=== PATIENT | female | born 1965 | race Caucasian/White ===

== ENCOUNTER 2018-07-05 14:25 | Day surgery (SDC) | payer MEDICAID ==
[~2018-07-05] VITALS: Ht 170.2 cm; Wt 105.5 kg
[~2018-07-05 14:25] MED LIST: ALBU18HF2 INH; ALEN70TA48 PO; ARIP2TAB37 PO; ATOR40TA PO; BISACODYL PO; CLOP75TA35 PO; EPIN0.3P3; FLUC100T PO; GABA300C PO; HYDR-4383 PO; HYDR25TA4 PO; KEN0.1O TP; LEVO100T PO; LOSA50TA3 PO; METH-603 PO; MYCOL15CR TP; OSC500T PO; OXYB5TAB11 PO; PANT40TA4 PO; POLY17PO10 PO; POTA10TA19 PO; TEMA30CA5 PO; TRAZ-219 PO; VENL150C2 PO
[2018-07-05 14:35] VITALS: BP 150/92
[2018-07-05] MEDS ORDERED: fentaNYL/PF 50MCG/1 ML 2ML syringe ONE (15:06)
[2018-07-05] MEDS ORDERED: LIDOcaine Viscous 15ml cup ONE (15:07)
[2018-07-05] MEDS ORDERED: MIDAZolam 5mg/5ml vial ONE ×2 (15:07→15:54)
[2018-07-05 16:08] VITALS: BP 141/108
[2018-07-05 16:18] VITALS: BP 115/54
[2018-07-05 16:28] VITALS: BP 160/77
[2018-07-05 16:38] VITALS: BP 147/97
== END 2018-07-05 16:55 | disposition home or self-care (01) ==
LOC: GI LAB 14:25
PROVIDERS: ATTEND Internal Medicine Gastroenterology
DX: K29.50 Unspecified chronic gastritis without bleeding (principal); K20.9 Esophagitis, unspecified; K31.89 Other diseases of stomach and duodenum; K22.8 Other specified diseases of esophagus; K25.9 Gastric ulcer, unspecified as acute or chronic, without hemorrhage or perforation; E66.01 Morbid (severe) obesity due to excess calories; I10 Essential (primary) hypertension; I25.10 Atherosclerotic heart disease of native coronary artery without angina pectoris; I71.4 Abdominal aortic aneurysm, without rupture; J44.9 Chronic obstructive pulmonary disease, unspecified; Z87.891 Personal history of nicotine dependence; Z95.5 Presence of coronary angioplasty implant and graft; Z79.891 Long term (current) use of opiate analgesic; Z88.5 Allergy status to narcotic agent; Z68.36 Body mass index [BMI] 36.0-36.9, adult; Z86.69 Personal history of other diseases of the nervous system and sense organs; Z88.8 Allergy status to other drugs, medicaments and biological substances; Z98.890 Other specified postprocedural states; Z79.899 Other long term (current) drug therapy
CPT/HCPCS: 43239; 99152; J2250; J3010; J7030; A4620

== ENCOUNTER 2019-04-05 22:53 | Emergency (ER) | payer MEDICAID ==
[~2019-04-05] VITALS: Ht 172.7 cm; Wt 112.0 kg
[~2019-04-05 22:53] MED LIST changes: -ALEN70TA48 PO; -ATOR40TA PO; -BISACODYL PO; -FLUC100T PO; -HYDR-4383 PO; -LOSA50TA3 PO; -METH-603 PO; -MYCOL15CR TP; -OSC500T PO; -OXYB5TAB11 PO; +OXYB5TAB16 PO; -PANT40TA4 PO; -TEMA30CA5 PO; -TRAZ-219 PO; -VENL150C2 PO
[2019-04-05 23:06] VITALS: BP 148/96
--- NOTE | 2019-04-06 01:42 | NUR ---
Nsg staff reports witnessing Pt leaving Bed 8. unable to locate Pt. on unit. Placed call to number on file. No ring or tone after dialing, unable to F/U. Dr. Alfaro informed.
== END 2019-04-06 01:52 | disposition left against medical advice (07) ==
LOC: ER 22:54
DX: M25.561 Pain in right knee (principal); M25.562 Pain in left knee; Z53.21 Procedure and treatment not carried out due to patient leaving prior to being seen by health care provider

== ENCOUNTER → 2021-03-11 | Day surgery (SDC) | payer MEDICAID ==
[2021-03-06 09:46] LABS: BASOPHILS % (AUTO) 0.6 % (0-1); EOSINOPHILS # (AUTO) 0.3 X10'3 (0-0.9); EOSINOPHILS % (AUTO) 4.6 % (0-6); LYMPHOCYTES # (AUTO) 1.4 X10'3 (1.1-4.8); LYMPHOCYTES % (AUTO) 18.6 % (21-51); MEAN CORPUSCULAR HEMOGLOBIN 31.3 PG (27.0-31.0); MEAN CORPUSCULAR HGB CONC 32.9 g/dL (33.0-36.5); MEAN CORPUSCULAR VOLUME 95.1 FL (78-98); MONOCYTES # (AUTO) 0.6 X10'3 (0-0.9); MONOCYTES % (AUTO) 8.5 % (2-12); NEUTROPHILS % (AUTO) 67.7 % (42-75); PRE OP HEMATOCRIT 38.4 % (35.0-45.0); PRE OP HEMOGLOBIN 12.6 g/dL (12.0-16.0); PRE OP PLATELET COUNT 222 X10'3 (140-440); RED BLOOD COUNT 4.03 X10'6 (4.20-5.60); RED CELL DISTRIBUTION WIDTH 12.7 % (11.5-14.5)
[2021-03-06 10:07] LABS: ALBUMIN 3.7 G/DL (3.4-5.0); ALBUMIN/GLOBULIN RATIO 1.2 (1.1-1.5); ALKALINE PHOSPHATASE 88 IU/L (46-116); BLOOD UREA NITROGEN 14 MG/DL (7-18); BUN/CREATININE RATIO 17.3 (6.6-38.0); CALCIUM 8.8 MG/DL (8.5-10.1); CHLORIDE 102 MMOL/L (99-107); CREATININE 0.81 MG/DL (0.40-0.90); PRE OP ALT 29 U/L (30-65); PRE OP ANION GAP 5 (8-16); PRE OP AST 13 U/L (10-37); PRE OP BILIRUB, TOTAL 0.4 MG/DL (0.0-1.0); PRE OP GLUCOSE 96 MG/DL (70-104); PRE OP POTASSIUM 3.7 MMOL/L (3.4-5.1); PRE OP SODIUM 139 MMOL/L (135-145); TOTAL CARBON DIOXIDE 32.3 MMOL/L (24-32); TOTAL PROTEIN 6.7 G/DL (6.4-8.2); eGFR 73 ML/MIN
[~2021-03-11] VITALS: Ht 170.2 cm; Wt 112.5 kg
[2021-03-11] VITALS (8 sets, daily range): BP systolic 136–163; BP diastolic 66–80
[~2021-03-11] MED LIST changes: -ARIP2TAB37 PO; +ATOR-2 PO; +BUDE10.26 INH; +BUPIVAcaine/PF 2.5mg/ml (0.25%) 10ml vial IJ ONE; -CLOP75TA35 PO; +DOCUMENT DATE & TIME OF BETA-BLOCKER PO ONE; -EPIN0.3P3; +HYDR-3972 PO; +IPRA3AMP31 NEB; -KEN0.1O TP; +LISI10TA27 PO; +LORA-949 PO; +LOSA100T57 PO; +METO25TA6 PO; +MIDAZolam 1 MG/ML 5ML VIAL ONE; +MSC30T PO; -POLY17PO10 PO; -POTA10TA19 PO; +POTASSIUM PO; +QUET50TA22 PO; +TRAZ-256 PO; +VENL150C58 PO; +albuterol 2.5 MG/3 ML nebule NEB ONE; +cefazolin/dext.iso 2gm/100ml 100 ML IV ONE; +famotidine 20mg tablet PO ONE; +fentaNYL/PF 50MCG/1 ML 2ML syringe ONE; +ketorolac trometh. 30mg/ml inj. ONE; +ringers solution, lacted 1,000 ML IV SCH
--- NOTE | 2021-03-11 10:22 | NUR ---
Received from OR via , accompanied by Anesthesiologist and report given by Anesthesiolgist. PT PRESENTS WITH PIV 20G RIGHT HAND, DRESSING ON RIGHT HAND INDEX FINGER DRY AND INTACT. Addendum: 03/11/21 at 1032 by Enriqueta Dove RN, RN Amended: Links added.
--- NOTE | 2021-03-11 11:22 | NUR ---
ALL DISCHARGE CRITERIA HAS BEEN MET. VSS, PAIN AT A TOLERABLE LEVEL, VOIDING AND ABLE TO SAFELY AMBULATE AND TRANSFER SELF. IV TAKEN OUT WITHOUT ANY COMPLICATIONS. ALL DISCHARGE INSTRUCTIONS COVERED WITH PATIENT AND ALL QUESTIONS ANSWERED. PATIENT TAKEN OUT VIA WHEELCHAIR TO PERSONAL VEHICLE WHERE FAMILY/FRIEND DROVE PATIENT HOME. Addendum: 03/11/21 at 1129 by Enriqueta Dove RN, RN Amended: Links added.
== END | disposition home or self-care (01) ==
LOC: PAS 07:52
PROVIDERS: ATTEND Orthopaedic Surgery Hand Surgery
DX: D16.12 Benign neoplasm of short bones of left upper limb (principal); G47.30 Sleep apnea, unspecified; F41.9 Anxiety disorder, unspecified; G89.4 Chronic pain syndrome; I10 Essential (primary) hypertension; K21.9 Gastro-esophageal reflux disease without esophagitis; E78.5 Hyperlipidemia, unspecified; E03.9 Hypothyroidism, unspecified; M17.11 Unilateral primary osteoarthritis, right knee; J43.9 Emphysema, unspecified; E66.01 Morbid (severe) obesity due to excess calories; Z68.38 Body mass index [BMI] 38.0-38.9, adult; F32.9 Major depressive disorder, single episode, unspecified; G62.9 Polyneuropathy, unspecified; Z91.030 Bee allergy status; Z79.899 Other long term (current) drug therapy; Z79.01 Long term (current) use of anticoagulants; Z88.5 Allergy status to narcotic agent; Z88.8 Allergy status to other drugs, medicaments and biological substances; Z87.891 Personal history of nicotine dependence; Z98.890 Other specified postprocedural states
CPT/HCPCS: 26989; 36415; 80053; 85025; A6222; C1713; J1885; J2250; J3010; J3490; J7120; A4215; A4618; A6449; A7000

== ENCOUNTER 2021-10-24 09:25 | Day surgery (SDC) | payer MEDICAID ==
[~2021-10-24] VITALS: Ht 170.2 cm; Wt 117.3 kg
[~2021-10-24 09:25] MED LIST changes: -BUPIVAcaine/PF 2.5mg/ml (0.25%) 10ml vial IJ ONE; -DOCUMENT DATE & TIME OF BETA-BLOCKER PO ONE; -MIDAZolam 1 MG/ML 5ML VIAL ONE; -QUET50TA22 PO; +QUET50TA24 PO; -albuterol 2.5 MG/3 ML nebule NEB ONE; -cefazolin/dext.iso 2gm/100ml 100 ML IV ONE; -famotidine 20mg tablet PO ONE; -fentaNYL/PF 50MCG/1 ML 2ML syringe ONE; -ketorolac trometh. 30mg/ml inj. ONE; -ringers solution, lacted 1,000 ML IV SCH
[2021-10-24 09:46] VITALS: BP 140/55
[2021-10-24] MEDS ORDERED: fentaNYL/PF 50MCG/1 ML 2ML syringe ONE (10:12)
[2021-10-24] MEDS ORDERED: LIDOcaine Viscous 15ml cup ONE (10:13)
[2021-10-24] MEDS ORDERED: MIDAZolam 1 MG/ML 5ML VIAL ONE ×2 (10:13→14:01)
[2021-10-24] MEDS ORDERED: AMLO10TA48 PO (10:21)
[2021-10-24] MEDS ORDERED: AMLO10TA PO (10:24)
[2021-10-24 13:04] VITALS: BP 126/54
[2021-10-24 13:14] VITALS: BP 109/66
[2021-10-24 13:24] VITALS: BP 114/57
[2021-10-24 13:34] VITALS: BP 135/64
== END 2021-10-24 14:00 | disposition home or self-care (01) ==
LOC: GI LAB 09:25
PROVIDERS: ATTEND Internal Medicine Gastroenterology
DX: R13.14 Dysphagia, pharyngoesophageal phase (principal); R10.13 Epigastric pain; K22.2 Esophageal obstruction; K29.50 Unspecified chronic gastritis without bleeding; K20.80 Other esophagitis without bleeding; Z79.899 Other long term (current) drug therapy
CPT/HCPCS: 43239; 43248; 99152; C1769; J2250; J3010; J7040; Z7512; 99153; A4620